=== PATIENT | female | born 1985 | race Caucasian/White ===

== ENCOUNTER → 2017-07-09 | Outpatient (CLI) | payer OTHER ==
[~2017-07-09] MED LIST: ACET50TA PO; AUGM875T28 PO; CELE1CAP4 PO; IBUP-1114 PO; NEUR600T PO; PEPC1TAB4 PO; PREN27TA3 PO; ROXI1TAB2 PO; TYLE325T5 PO
--- NOTE | 2017-07-09 17:05 | REP ---
ULTRASOUND RIGHT INFRACLAVICULAR REGION: Real-time sonographic evaluation of the right infraclavicular region performed at the site of a palpable abnormality of the anterior chest wall. There is no underlying cystic or solid nodule. No sonographic abnormality is visualized. Signed by Ford Almanza MD 07/09/2017 05:45 P
== END ==
LOC: M RAD 11:50
PROVIDERS: ATTEND Advanced Practice Midwife
DX: N64.59 Other signs and symptoms in breast (principal)

== ENCOUNTER → 2018-06-02 | Outpatient (CLI) | payer OTHER | LOC: M RAD 13:31 | DX: Z12.31 Encounter for screening mammogram for malignant neoplasm of breast (principal); Z79.3 Long term (current) use of hormonal contraceptives; Z80.3 Family history of malignant neoplasm of breast | CPT/HCPCS: 77067 ==

== ENCOUNTER → 2018-12-31 | Outpatient (REF) | payer OTHER ==
[~2018-12-31] MED LIST changes: -ACET50TA PO; +MAPA500T2 PO; -PEPC1TAB4 PO; +PEPC1TAB5 PO
[2019-01-04 14:26] LABS: HPV HYBRID CAPTURE II Negative (Negative)
== END ==
LOC: M LAB REF 17:04
PROVIDERS: ATTEND Advanced Practice Midwife
DX: Z12.4 Encounter for screening for malignant neoplasm of cervix (principal)
CPT/HCPCS: 87624; G0123

== ENCOUNTER → 2019-10-20 | Outpatient (CLI) | payer OTHER ==
--- NOTE | 2019-10-20 16:54 | REP ---
Two-view chest: 10/20/2019. Indication: Cough. Comparison: None. Findings: The lungs are clear. There is no pleural effusion or pneumothorax. The cardiomediastinal silhouette is unremarkable. Impression: No acute cardiopulmonary process. Electronically Signed by Jacky Ramírez DO 10/20/2019 03:59 P
== END ==
LOC: M WUC 15:39
PROVIDERS: ATTEND Physician Assistant
DX: J20.9 Acute bronchitis, unspecified (principal)

== ENCOUNTER → 2019-12-07 | Outpatient (CLI) | payer OTHER ==
--- NOTE | 2019-12-07 10:09 | REP ---
DIGITAL DIAGNOSTIC BILATERAL MAMMOGRAPHY WITH CAD, 3D TOMOGRAPHY, AND FOCUSED RIGHT BREAST SONOGRAPHY: HISTORY: Palpable lump right breast superiorly and laterally. Present times 3 weeks. Comparison mammography June 02, 2018. FINDINGS: Breast parenchyma is extremely dense in a pattern which may inhibit the sensitivity of mammography. Skin markers affixed to the skin at the site of the palpable lump. This node projects at approximately 12 to 1-o'clock position. Slightly medial. No mammographic evidence of mass at the site of the palpable lump or elsewhere in either breast. Breast parenchyma is unchanged from the prior study. No architectural distortion, worrisome skin change, or grouped microcalcifications are visible on either side. SONOGRAPHIC FINDINGS: The right breast is scanned in the area of the palpable lump at approximate 12-o'clock position. Heterogeneous fibroglandular background echotexture is visible. There is no mass or cyst seen. No evidence of architectural distortion or abnormal acoustic shadowing. IMPRESSION: BIRADS 1: BI-RADS/ACR category 1 mammogram. Negative Mammogram. BIRADS category 1 negative findings. Clinical followup is advised. This negative report should not dissuade one from biopsy of a palpable lump depending on its clinical characteristics. This mammogram was interpreted with the aid of an FDA-approved computer-aided detection system. The patient states she had a clinical breast exam in November 2019. The patient letter being requested is M2, dense. This patient's estimated Tyrer-Cuzick lifetime risk assessment for the breast cancer is 32.6 %. Enhanced screening in the form of annual bilateral breast MRI scanning is warranted. Bilateral breast MRI scanning is recommended annually, beginning 6 months from now.
== END ==
LOC: M WHC 07:49
PROVIDERS: ATTEND Advanced Practice Midwife
DX: N63.11 Unspecified lump in the right breast, upper outer quadrant (principal)
CPT/HCPCS: 76642; 77066; G0279

== ENCOUNTER → 2020-07-06 | Outpatient (REF) | payer OTHER | LOC: M SFHCCLAY 12:18 | PROVIDERS: ATTEND Nurse Practitioner Family | DX: R19.7 Diarrhea, unspecified (principal) ==

== ENCOUNTER → 2020-09-05 | Outpatient (CLI) | payer OTHER ==
[~2020-09-05] MED LIST changes: +CETI10CH PO; +ESOM1CAP5 PO; +SIME125C4 PO
== END ==
LOC: M LABSMTC 10:06
PROVIDERS: ATTEND Anesthesiology
DX: Z01.812 Encounter for preprocedural laboratory examination (principal); Z20.828 Contact with and (suspected) exposure to other viral communicable diseases

== ENCOUNTER 2020-09-10 09:32 | Day surgery (SDC) | payer OTHER ==
[~2020-09-10] VITALS: Ht 165.1 cm; Wt 57.1 kg
[~2020-09-10 09:32] MED LIST changes: +LIDOCAINE 2% 100MG/5ML SDV (FOR ANES.) As Ordered ONE; +NS 1,000 ML IV ONE; +propofoL 200 MG/20 ML VIAL As Ordered ONE
--- NOTE | 2020-09-10 11:20 | ROOR ---
Patient Name: Sadaf Martin Procedure Date: 09/10/2020 11:01 AM Date of : 1985 Age: 35 Room: [facility] Gender: Female Note Status: Finalized Procedure: Upper Endoscopy + Biopsies Indications: Epigastric abdominal pain, Diarrhea Providers: Tristin Floyd MD Referring MD: SIENNA HIDALGO DO Requesting Provider: Medicines: Monitored Anesthesia Care Complications: No immediate complications. Procedure: Pre-Anesthesia Assessment: - The heart rate, respiratory rate, oxygen saturations, blood pressure, adequacy of pulmonary ventilation, and response to care were monitored throughout the procedure. The Endoscope was introduced through the mouth, and advanced to the second part of duodenum. The upper GI endoscopy was accomplished without difficulty. The patient tolerated the procedure well. Findings: The Z-line was irregular and was found 40 cm from the incisors. Multiple biopsies were obtained with cold forceps for evaluation to rule out Zaragoza's Esophagus randomly at the gastroesophageal junction. A small hiatal hernia was present. No other significant abnormalities were identified in a careful examination of the stomach. Biopsies were taken with a cold forceps in the gastric antrum for Helicobacter pylori testing. The exam of the duodenum was otherwise normal. Biopsies for histology were taken with a cold forceps in the first portion of the duodenum for evaluation of celiac disease. The exam was otherwise without abnormality. Impression: - Z-line irregular, 40 cm from the incisors. - Small hiatal hernia. - The examination was otherwise normal. - Multiple biopsies were obtained at the gastroesophageal junction. - Biopsies were taken with a cold forceps for Helicobacter pylori testing. - Biopsies were taken with a cold forceps for evaluation of celiac disease. - The examination was otherwise normal. Recommendation: - Patient has a contact number available for emergencies. The signs and symptoms of potential delayed complications were discussed with the patient. Return to normal activities tomorrow. Written discharge instructions were provided to the patient. - High fiber diet. - Discharge patient to home. - Continue present medications. - Await pathology results. - Telephone GI clinic for pathology results in 1 week. - Return to referring physician. - The findings and recommendations were discussed with the patient. Procedure Code(s): --- Professional --- 68370, Esophagogastroduodenoscopy, flexible, transoral; with biopsy, single or multiple Diagnosis Code(s): --- Professional --- K22.8, Other specified diseases of esophagus K44.9, Diaphragmatic hernia without obstruction or gangrene R10.13, Epigastric pain R19.7, Diarrhea, unspecified CPT copyright 2019 [employer]. All rights reserved. The codes documented in this report are preliminary and upon rcp review may be revised to meet current compliance requirements. Tristin Floyd MD Tristin Floyd MD 09/10/2020 11:19:51 AM Electronically signed by Tristin Floyd MD Number of Addenda: 0 Note Initiated On: 09/10/2020 11:01 AM Estimated Blood Loss: Estimated blood loss: none.
[2020-09-10] MEDS ORDERED: propofoL 200 MG/20 ML VIAL As Ordered ONE (11:23)
--- NOTE | 2020-09-10 11:41 | ROOR ---
Patient Name: Sadaf Martin Procedure Date: 09/10/2020 11:02 AM Date of : 1985 Age: 35 Room: [facility] Gender: Female Note Status: Finalized Procedure: Total Colonoscopy to Cecum + ileoscopy + Bx Indications: Clinically significant diarrhea of unexplained origin Providers: Tristin Floyd MD Referring MD: SIENNA HIDALGO DO Requesting Provider: Medicines: Monitored Anesthesia Care Complications: No immediate complications. Procedure: Pre-Anesthesia Assessment: - The heart rate, respiratory rate, oxygen saturations, blood pressure, adequacy of pulmonary ventilation, and response to care were monitored throughout the procedure. The Colonoscope was introduced through the anus and advanced to the terminal ileum, with identification of the appendiceal orifice and IC valve. The colonoscopy was performed without difficulty. The patient tolerated the procedure well. The quality of the bowel preparation was excellent. Findings: The perianal and digital rectal examinations were normal. Non-bleeding internal hemorrhoids were found during retroflexion. The hemorrhoids were small and Grade I (internal hemorrhoids that do not prolapse). Multiple small and large-mouthed diverticula were found in the recto-sigmoid colon, sigmoid colon and descending colon. The terminal ileum appeared normal. Biopsies for histology were taken with a cold forceps from the ascending colon, transverse colon, descending colon and rectosigmoid colon for evaluation of microscopic colitis. The exam was otherwise without abnormality on direct and retroflexion views. Impression: - Non-bleeding internal hemorrhoids. - Diverticulosis in the recto-sigmoid colon, in the sigmoid colon and in the descending colon. - The examined portion of the ileum was normal. - The examination was otherwise normal on direct and retroflexion views. - Biopsies were taken with a cold forceps from the ascending colon, transverse colon, descending colon and rectosigmoid colon for evaluation of microscopic colitis. - The exam was otherwise normal to the cecum. Recommendation: - Patient has a contact number available for emergencies. The signs and symptoms of potential delayed complications were discussed with the patient. Return to normal activities tomorrow. Written discharge instructions were provided to the patient. - High fiber diet. - Discharge patient to home. - Continue present medications. - Await pathology results. - Telephone GI clinic for pathology results in 1 week. - Repeat colonoscopy in 10 years for screening purposes. - Return to referring physician. - The findings and recommendations were discussed with the patient. Procedure Code(s): --- Professional --- 56472, Colonoscopy, flexible; with biopsy, single or multiple Diagnosis Code(s): --- Professional --- K64.0, First degree hemorrhoids R19.7, Diarrhea, unspecified K57.30, Diverticulosis of large intestine without perforation or abscess without bleeding CPT copyright 2019 [employer]. All rights reserved. The codes documented in this report are preliminary and upon image consultant review may be revised to meet current compliance requirements. Tristin Floyd MD Tristin Floyd MD 09/10/2020 11:41:09 AM Electronically signed by Tristin Floyd MD Number of Addenda: 0 Note Initiated On: 09/10/2020 11:02 AM Estimated Blood Loss: Estimated blood loss: none.
[2020-09-10 12:12] VITALS: BP 106/53
== END 2020-09-10 12:15 | disposition home or self-care (01) ==
LOC: M OPP 09:32
PROVIDERS: ATTEND Internal Medicine Gastroenterology
DX: K57.30 Diverticulosis of large intestine without perforation or abscess without bleeding (principal); K64.0 First degree hemorrhoids; R19.7 Diarrhea, unspecified; K22.8 Other specified diseases of esophagus; K44.9 Diaphragmatic hernia without obstruction or gangrene; R10.13 Epigastric pain; Z88.2 Allergy status to sulfonamides

== ENCOUNTER → 2020-12-13 | Outpatient (CLI) | payer OTHER ==
[~2020-12-13] MED LIST changes: -LIDOCAINE 2% 100MG/5ML SDV (FOR ANES.) As Ordered ONE; -NS 1,000 ML IV ONE; -propofoL 200 MG/20 ML VIAL As Ordered ONE
--- NOTE | 2020-12-13 13:49 | REPMRS ---
Patient History The patient states she had a clinical breast exam in 11/2019 Family history of breast cancer at age 58 in mother, breast cancer at age 67 in maternal aunt. Took hormonal contraceptives for 14 years. Digital Woman Screen Mammo: December 13, 2020 - Exam #: [id number] Bilateral CC and MLO view(s) were taken. Technologist: Annamarie Garcia, Technologist Prior study comparison: December 07, 2019, diagnostic bilateral mammo performed at [facility] [place]. June 02, 2018, bilateral digital mammo screening bilat, performed at [facility]. FINDINGS: The breast tissue is extremely dense which could obscure a lesion on mammography. The Volpara volumetric breast density category is: D. There is an extremely dense symmetrical pattern of residual fibroglandular tissue. There has been no change in the appearance of the mammogram from the previous studies. There is no interval development of dominant mass, archetectural distortion, or grouped microcalcifications suggestive of malignancy. 3-D tomosynthesis shows no additional findings. Assessment: BI-RADS/ACR category 1 mammogram. Negative Mammogram. Recommendation Breast MRI of both breasts in 6 months. Routine screening mammogram of both breasts in 1 year (for women over age 40). This patient's [facility] Lifetime Breast Cancer RIsk is estimated at 32.5 %. Annual screening Breast MRI scanniing is recommended for patient's whose lifetime risk assessment is over 20%. This mammogram was interpreted with the aid of an FDA-approved computer-aided dectection system. Electronically Signed By: Javier Narayan MD 12/13/20 [id number]
== END ==
LOC: M WHC 13:16
PROVIDERS: ATTEND Surgery
DX: Z12.31 Encounter for screening mammogram for malignant neoplasm of breast (principal); Z80.3 Family history of malignant neoplasm of breast; Z92.0 Personal history of contraception

== ENCOUNTER → 2021-06-04 | Outpatient (CLI) | payer OTHER ==
--- NOTE | 2021-06-05 10:05 | REP ---
INDICATION: Dense breasts COMPARISON: None TECHNIQUE: Real-time bilateral whole breast screening ultrasonography using anatomical intelligence and shear wave elastography if indicated. FINDINGS: There are no cystic or solid masses. IMPRESSION: ACR category 2 benign bilateral whole breast screening ultrasonography. <Electronically signed by José Rucker > 06/05/21 [id number]
== END ==
LOC: M WHC 12:57
PROVIDERS: ATTEND Nurse Practitioner Women's Health
DX: Z12.31 Encounter for screening mammogram for malignant neoplasm of breast (principal); Z80.3 Family history of malignant neoplasm of breast

== ENCOUNTER → 2021-08-27 | Outpatient (REF) | payer OTHER | LOC: M SFHCWAGY 13:33 | PROVIDERS: ATTEND Advanced Practice Midwife | DX: Z12.4 Encounter for screening for malignant neoplasm of cervix (principal) | CPT/HCPCS: 87624; G0123 ==

== ENCOUNTER → 2021-12-16 | Outpatient (CLI) | payer OTHER | LOC: M WHC 12:32 | PROVIDERS: ATTEND Nurse Practitioner Women's Health | DX: N60.11 Diffuse cystic mastopathy of right breast (principal); N60.12 Diffuse cystic mastopathy of left breast; Z91.89 Other specified personal risk factors, not elsewhere classified; R92.2 Inconclusive mammogram; Z80.3 Family history of malignant neoplasm of breast ==

== ENCOUNTER → 2022-12-18 | Outpatient (CLI) | payer OTHER | LOC: M WHC 12:58 | PROVIDERS: ATTEND Nurse Practitioner Women's Health | DX: Z12.31 Encounter for screening mammogram for malignant neoplasm of breast (principal); Z91.89 Other specified personal risk factors, not elsewhere classified; Z80.3 Family history of malignant neoplasm of breast ==

== ENCOUNTER → 2023-02-04 | Outpatient (CLI) | payer OTHER | LOC: M WHC 11:53 | PROVIDERS: ATTEND Nurse Practitioner Women's Health | DX: R92.2 Inconclusive mammogram (principal); Z91.89 Other specified personal risk factors, not elsewhere classified; Z80.3 Family history of malignant neoplasm of breast ==

== ENCOUNTER → 2023-09-07 | Outpatient (CLI) | payer OTHER | LOC: M CLY 07:53 | PROVIDERS: ATTEND Family Medicine | DX: M46.1 Sacroiliitis, not elsewhere classified (principal); M54.16 Radiculopathy, lumbar region ==

== ENCOUNTER → 2023-09-07 | Outpatient (CLI) | payer OTHER | LOC: M CLY 07:44 | PROVIDERS: ATTEND Family Medicine | DX: M46.1 Sacroiliitis, not elsewhere classified (principal); M54.16 Radiculopathy, lumbar region; Z53.9 Procedure and treatment not carried out, unspecified reason ==

== ENCOUNTER → 2024-01-05 | Outpatient (CLI) | payer OTHER | LOC: M WHC 11:51 | PROVIDERS: ATTEND Nurse Practitioner Women's Health | DX: Z12.31 Encounter for screening mammogram for malignant neoplasm of breast (principal); Z80.3 Family history of malignant neoplasm of breast; Z91.89 Other specified personal risk factors, not elsewhere classified ==

== ENCOUNTER → 2024-04-11 | Outpatient (REF) | payer OTHER ==
[~2024-04-11] MED LIST changes: +ESOM1CAP20 PO; -ESOM1CAP5 PO
[2024-04-11 18:05] LABS: BASO % 0.3 % (0.0-1.0); EOS # 0.1 10^3/uL (0.0-0.5); EOS % 0.7 % (0.0-3.0); HEMATOCRIT 34.9 % (36.0-47.0); HEMOGLOBIN 10.5 g/dl (12.0-15.5); LYMPH # 0.9 10^3/uL (1.5-5.0); LYMPH % 8.5 % (24.0-44.0); MEAN CORPUSCULAR HEMOGLOBIN 22.6 pg (27.0-33.0); MEAN CORPUSCULAR HGB CONC 30.1 g/dl (32.0-36.5); MEAN CORPUSCULAR VOLUME 75.1 fl (80.0-96.0); MONO # 0.5 10^3/uL (0.0-0.8); MONO % 4.4 % (2.0-8.0); NEUTROPHILS # 9.4 10^3/uL (1.5-8.5); NEUTROPHILS % 85.6 % (36.0-66.0); PLATELET COUNT, AUTOMATED 301 10^3/uL (150-450); RED BLOOD COUNT 4.65 10^6/uL (4.00-5.40)
[2024-04-11 18:25] LABS: ALBUMIN 3.3 G/DL (3.2-5.2); ALKALINE PHOSPHATASE 55 U/L (46-116); ALT/SGPT 24 U/L (7.0-40); AST/SGOT 9 U/L (<34); BILIRUBIN,TOTAL 1.4 MG/DL (0.3-1.2); BLOOD UREA NITROGEN 6 MG/DL (9-23); CALCIUM LEVEL 8.6 MG/DL (8.5-10.1); CARBON DIOXIDE LEVEL 28 MMOL/L (20-31); CHLORIDE LEVEL 107 MMOL/L (98-107); CREATININE FOR GFR 0.62 MG/DL (0.55-1.30); GLOMERULAR FILTRATION RATE > 60.0 (>60); GLUCOSE, FASTING 90 MG/DL (60-100); POTASSIUM SERUM 4.1 MMOL/L (3.5-5.1); SODIUM LEVEL 137 MMOL/L (136-145); TOTAL PROTEIN 6.3 G/DL (5.7-8.2)
== END ==
LOC: M SFHCCLAY 09:32
PROVIDERS: ATTEND Physician Assistant
DX: R50.9 Fever, unspecified (principal)

== ENCOUNTER → 2024-05-10 | Outpatient (REF) | payer OTHER ==
[2024-05-10 11:49] LABS: BASO % 0.2 % (0.0-1.0); EOS # 0.5 10^3/uL (0.0-0.5); EOS % 9.1 % (0.0-3.0); HEMATOCRIT 36.4 % (36.0-47.0); HEMOGLOBIN 10.6 g/dl (12.0-15.5); LYMPH # 1.3 10^3/uL (1.5-5.0); LYMPH % 21.6 % (24.0-44.0); MEAN CORPUSCULAR HEMOGLOBIN 20.9 pg (27.0-33.0); MEAN CORPUSCULAR HGB CONC 29.1 g/dl (32.0-36.5); MEAN CORPUSCULAR VOLUME 71.8 fl (80.0-96.0); MONO # 0.4 10^3/uL (0.0-0.8); MONO % 7.1 % (2.0-8.0); NEUTROPHILS # 3.6 10^3/uL (1.5-8.5); NEUTROPHILS % 61.8 % (36.0-66.0); PLATELET COUNT, AUTOMATED 337 10^3/uL (150-450); RED BLOOD COUNT 5.07 10^6/uL (4.00-5.40); WHITE BLOOD COUNT 5.8 10^3/uL (4.0-10.0)
[2024-05-10 11:54] LABS: FERRITIN 2.6 NG/ML (7.3-270.7); THYROID STIMULATING HORMONE 1.185 uIU/ML (0.55-4.78)
[2024-05-10 11:55] LABS: FOLATE 12.22 NG/ML (>5.4)
[2024-05-10 11:56] LABS: VITAMIN B12 LEVEL 278 PG/ML (211-911)
[2024-05-10 11:58] LABS: C REACTIVE PROTEIN QUANTITATIV < 0.40 MG/DL (<1.0)
[2024-05-10 11:59] LABS: IRON (FE) 23 UG/DL (50-170)
[2024-05-10 12:00] LABS: ERYTHROCYTE SEDIMENTATION RATE 49 mm/hr (0-20)
[2024-05-10 12:01] LABS: RHEUMATOID FACTOR QUANT 4.2 IU/ML (<14)
[2024-05-10 12:02] LABS: PERCENT SATURATION 6.4 % (13.2-45.0); TOTAL IRON BINDING CAPACITY 359 UG/DL (250-425)
[2024-05-11 12:12] LABS: CYCLIC CITRULLINATED PEPTIDE < 16 UNITS (<20)
[2024-05-12 16:07] LABS: ANA PATTERN Cytoplasmic (NEGATIVE); ANA PATTERN 2 Nuclear, Speckled; ANA SCREEN, IFA POSITIVE (NEGATIVE); ANA TITER 1:40 titer (<1:40)
== END ==
LOC: M SFHCCLAY 07:28
PROVIDERS: ATTEND Physician Assistant
DX: R52 Pain, unspecified (principal); D64.9 Anemia, unspecified

== ENCOUNTER → 2024-07-21 | Outpatient (REF) | payer OTHER ==
[2024-07-21 12:01] LABS: HEMATOCRIT 46.1 % (36.0-47.0); MEAN CORPUSCULAR HEMOGLOBIN 24.1 pg (27.0-33.0); MEAN CORPUSCULAR HGB CONC 30.4 g/dl (32.0-36.5); MEAN CORPUSCULAR VOLUME 79.3 fl (80.0-96.0); PLATELET COUNT, AUTOMATED 274 10^3/uL (150-450); RED BLOOD COUNT 5.81 10^6/uL (4.00-5.40); WHITE BLOOD COUNT 5.3 10^3/uL (4.0-10.0)
[2024-07-21 12:08] LABS: C REACTIVE PROTEIN QUANTITATIV < 0.40 MG/DL (<1.0); IRON (FE) 194 UG/DL (50-170); PERCENT SATURATION 57.2 % (13.2-45.0); RHEUMATOID FACTOR QUANT 6.6 IU/ML (<14); TOTAL IRON BINDING CAPACITY 339 UG/DL (250-425)
[2024-07-21 12:13] LABS: ALBUMIN 3.7 G/DL (3.2-5.2); ALKALINE PHOSPHATASE 46 U/L (46-116); ALT/SGPT 11 U/L (7.0-40); AST/SGOT < 8 U/L (<34); BILIRUBIN,TOTAL 1.2 MG/DL (0.3-1.2); BLOOD UREA NITROGEN 10 MG/DL (9-23); CALCIUM LEVEL 9.8 MG/DL (8.5-10.1); CARBON DIOXIDE LEVEL 28 MMOL/L (20-31); CHLORIDE LEVEL 104 MMOL/L (98-107); CREATININE FOR GFR 0.64 MG/DL (0.55-1.30); FERRITIN 10.1 NG/ML (7.3-270.7); GLOMERULAR FILTRATION RATE > 60.0 (>60); GLUCOSE, FASTING 80 MG/DL (60-100); POTASSIUM SERUM 4.1 MMOL/L (3.5-5.1); SODIUM LEVEL 135 MMOL/L (136-145); THYROID STIMULATING HORMONE 0.943 uIU/ML (0.55-4.78)
[2024-07-21 12:17] LABS: ERYTHROCYTE SEDIMENTATION RATE 28 mm/hr (0-20)
[2024-07-22 06:52] LABS: PROTEIN, TOTAL SO 7.6 g/dL (6.1-8.1)
[2024-07-23 00:32] LABS: CYCLIC CITRULLINATED PEPTIDE < 16 UNITS (<20)
[2024-07-25 12:42] LABS: ALBUMIN SO 4.2 g/dL (3.8-4.8); ALPHA 1 GLOBULINS SO 0.2 g/dL (0.2-0.3); ALPHA 2 GLOBULINS SO 0.7 g/dL (0.5-0.9); BETA 2 GLOBULIN SO 0.3 g/dL (0.2-0.5); BETA GLOBULIN SO 0.4 g/dL (0.4-0.6); GAMMA GLOBULINS SO 1.7 g/dL (0.8-1.7)
[2024-07-25 13:07] LABS: ANA PATTERN Nuclear, Homogeneous (NEGATIVE); ANA SCREEN, IFA POSITIVE (NEGATIVE)
== END ==
LOC: M SFHCCLAY 08:20
PROVIDERS: ATTEND Family Medicine
DX: M25.50 Pain in unspecified joint (principal); R76.8 Other specified abnormal immunological findings in serum; D50.9 Iron deficiency anemia, unspecified

== ENCOUNTER → 2024-08-07 | Outpatient (REF) | payer OTHER | LOC: M LAB REF 09:40 | PROVIDERS: ATTEND Registered Nurse | DX: R31.9 Hematuria, unspecified (principal) ==

== ENCOUNTER → 2024-08-08 | Outpatient (CLI) | payer OTHER ==
[~2024-08-08] MED LIST changes: +PROHANCE 279.3MG/ML 15ML VIAL As Ordered ONE
== END ==
LOC: M RAD 10:44
PROVIDERS: ATTEND Family Medicine
DX: R92.2 Inconclusive mammogram (principal); Z91.89 Other specified personal risk factors, not elsewhere classified; Z80.3 Family history of malignant neoplasm of breast
CPT/HCPCS: A9576; C8908

== ENCOUNTER → 2024-08-10 | Outpatient (REF) | payer OTHER ==
[~2024-08-10] MED LIST changes: -PROHANCE 279.3MG/ML 15ML VIAL As Ordered ONE
== END ==
LOC: M LAB REF 09:42
PROVIDERS: ATTEND Nurse Practitioner Family
DX: R31.9 Hematuria, unspecified (principal)

== ENCOUNTER → 2024-09-13 | Outpatient (REF) | payer OTHER ==
[2024-09-13 12:09] LABS: HEMATOCRIT 41.8 % (36.0-47.0); HEMOGLOBIN 13.5 g/dl (12.0-15.5); MEAN CORPUSCULAR HEMOGLOBIN 26.1 pg (27.0-33.0); MEAN CORPUSCULAR HGB CONC 32.3 g/dl (32.0-36.5); MEAN CORPUSCULAR VOLUME 80.7 fl (80.0-96.0); PLATELET COUNT, AUTOMATED 252 10^3/uL (150-450); RED BLOOD COUNT 5.18 10^6/uL (4.00-5.40); WHITE BLOOD COUNT 4.7 10^3/uL (4.0-10.0)
[2024-09-13 12:18] LABS: IRON (FE) 48 UG/DL (50-170)
[2024-09-13 12:19] LABS: ALBUMIN 3.7 G/DL (3.2-5.2); ALKALINE PHOSPHATASE 41 U/L (35-104); ALT/SGPT 16 U/L (7.0-40); AST/SGOT 9 U/L (<34); BILIRUBIN,TOTAL 1.3 MG/DL (0.3-1.2); BLOOD UREA NITROGEN 10 MG/DL (9-23); CALCIUM LEVEL 9.7 MG/DL (8.5-10.1); CARBON DIOXIDE LEVEL 26 MMOL/L (20-31); CHLORIDE LEVEL 107 MMOL/L (98-107); CREATININE FOR GFR 0.59 MG/DL (0.55-1.30); GLOMERULAR FILTRATION RATE > 60.0 (>60); GLUCOSE, FASTING 73 MG/DL (60-100); POTASSIUM SERUM 3.8 MMOL/L (3.5-5.1); SODIUM LEVEL 140 MMOL/L (136-145); TOTAL PROTEIN 7.2 G/DL (5.7-8.2)
== END ==
LOC: M SFHCCLAY 08:09
PROVIDERS: ATTEND Family Medicine
DX: M25.50 Pain in unspecified joint (principal); D50.9 Iron deficiency anemia, unspecified

== ENCOUNTER → 2025-01-18 | Outpatient (REF) | payer OTHER | LOC: M LAB REF 11:54 | PROVIDERS: ATTEND Nurse Practitioner Family | DX: R30.0 Dysuria (principal); N94.10 Unspecified dyspareunia; N89.8 Other specified noninflammatory disorders of vagina ==

== ENCOUNTER → 2025-01-18 | Outpatient (CLI) | payer OTHER | LOC: M WHC 07:32 | PROVIDERS: ATTEND Surgery | DX: Z12.31 Encounter for screening mammogram for malignant neoplasm of breast (principal) ==

== ENCOUNTER → 2025-07-21 | Outpatient (CLI) | payer OTHER ==
[~2025-07-21] MED LIST changes: +PROHANCE 279.3MG/ML 5ML VIAL ONE
== END ==
LOC: M PLAIMG 09:43
PROVIDERS: ATTEND Surgery
DX: Z12.31 Encounter for screening mammogram for malignant neoplasm of breast (principal)
CPT/HCPCS: A9576; C8908

== ENCOUNTER → 2025-08-10 | Outpatient (REF) | payer OTHER ==
[~2025-08-10] MED LIST changes: -PROHANCE 279.3MG/ML 5ML VIAL ONE
[2025-08-12 14:12] LABS: HPV APTIMA Not Detected (Not Detected)
== END ==
LOC: M SFHCWAGY 17:25
PROVIDERS: ATTEND Nurse Practitioner Family
DX: Z12.4 Encounter for screening for malignant neoplasm of cervix (principal)
CPT/HCPCS: 87624; G0123